=== PATIENT | female | born 1960 | race Caucasian/White ===

== ENCOUNTER 2022-01-01 19:16 | Emergency (ER) | payer MEDICARE, SELFPAY ==
[2022-01-01 19:21] VITALS: BP 138/57; PULSE 86; RESP 18; TEMP 36.6; O2SAT 94; BMI 40.3
[2022-01-01 19:27] VITALS: BP 138/57; PULSE 84; RESP 16; O2SAT 93
[2022-01-01 20:10] LABS: Glucose, Whole Blood 99 mg/dL (60-115)
[2022-01-01 20:10] LABS: Glucose, Whole Blood 116 mg/dL (60-115)
--- NOTE | 2022-01-01 22:00 | ECG_ITS ---
Test Reason : ALTERED MENTAL Blood Pressure : / mmHG Vent. Rate : 083 BPM Atrial Rate : 083 BPM P-R Int : 168 ms QRS Dur : 072 ms QT Int : 392 ms P-R-T Axes : 059 072 071 degrees QTc Int : 460 ms Normal sinus rhythm Normal ECG No previous ECGs available Referred By: Bernadette Rico Electronically Signed By:SWEETIE ESPAÑA
--- NOTE | 2022-01-01 22:02 | ED.GENADULT ---
HPI - General Adult General Chief complaint: General Medical Stated complaint: Hypoglycemic Time Seen by Provider: 01/01/22 20:18 Source: patient and EMS Mode of arrival: EMS Limitations: no limitations History of Present Illness HPI narrative: patient comes to the emergency room via ambulance due to hypoglycemia. Earlier this afternoon, patient was found by her nearly unresponsive, making noises and drooling. Patient's states that he try giving her orange juice but she drooled it out. EMS was called. On arrival of EMS, patient's blood glucose was in the low 40s, patient was given D50, patient's mental status improved nearly immediately. By the time patient arrived to the emergency room, she was alert and oriented x3, with a glucose of 116. Patient denies any recent URI or UTI symptoms. Patient was given food and drinks on arrival to the ED, patient states that she feels well. Patient states that she uses 80 units of Lantus at bedtime, and 60 units of Humalog 4 times a day Related Data Previous Rx's Medication Instructions Recorded glucagon 1 mg solution for 1 mg subcut Q20M PRN hypoglycemia 01/01/22 injection (Glucagon Emergency Kit) #1 ea Allergies Allergy/AdvReac Type Severity Reaction Status Date / Time No Known Allergies Allergy Verified 01/01/22 22:00 Review of Systems Review of Systems: Constitutional : No Weight loss, No Fever, No Chills, No Night Sweats, No Fatigue, No Malaise ENT/Mouth : No Hearing loss, No Ear Pain, No Nasal Congestion, No Sinus Pain, No Hoarseness, No sore throat, No Rhinorrhea, No Swallowing Difficulty Eyes: No Eye Pain, No Swelling, No Redness, No Foreign Body, No Discharge, No Vision Changes Cardiovascular : No Chest Pain, No SOB, No Dyspnea on Exertion, No Orthopnea, No Edema, No Palpitations Respiratory : No Cough, No Sputum, No Wheezing, No Smoke Exposure, No Dyspnea Gastrointestinal : No Nausea, No Vomiting, No Diarrhea, No Constipation, No abdominal Pain, No Hematochezia, No Melena Genitourinary : no irregular bleeding, No Dysuria, No Urinary Frequency, No Hematuria, No Urinary Incontinence, No Urgency, No Flank Pain, No Urinary Flow Changes, No Hesitancy Musculoskeletal : No joint pain, No Myalgias, No Joint Swelling Skin : No Skin Lesions, No rash Neuro : No Weakness, No Numbness, No Paresthesias, No Loss of Consciousness, No Dizziness, No Headache Psych : No Anxiety/Panic, No Depression, No SI/HI/AH/VH, No Social Issues, Heme/Lymph: No Bruising, No Bleeding,No Lymphadenopathy Endocrine : No Polyuria, No Polydipsia, No Temperature Intolerance, earlier today had an episode of hypoglycemia [facility] Past Medical History Medical History (Updated 01/01/22 @ 22:07 by Bernadette Rico MD) Asthma Type 2 diabetes mellitus Social History Social History Alcohol intake: never Patient Tobacco Use Status: Current everyday Tobacco user Use of substances other than those prescribed or required for medical reasons: No Advance Directives: No Advance Directives Information Provided: No Patient : No Physical Exam ED Vital Signs: Vital Signs - 24 hr 01/01/22 19:21 01/01/22 19:27 01/01/22 22:35 Temperature 97.8 F Pulse Rate 86 84 82 Respiratory Rate 18 16 16 Blood Pressure 138/57 L 138/57 L Pulse Oximetry 94 93 Oxygen Delivery Method Room Air Room Air BMI result Body Mass Index 40.3 Const Other: Appearance: Alert. Oriented X3. No acute distress. Eyes: Pupils equal, round and reactive to light. ENT: Pharynx normal. Neck: Normal inspection. Neck supple. No lymph nodes noted. No crepitus CVS: Normal heart rate and rhythm. Pulses normal. Normal S1 and S2 Respiratory: No respiratory distress. Breath sounds normal. No Wheezing. No rales Abdomen: Soft and nontender. No rigidity. No distention. Skin: Skin warm and dry. Normal skin color. Normal skin turgor. Extremities: No lower extremity edema. No Lacerations. No Rash Neuro: Oriented X 3. No motor deficit. No sensory deficit. Moving all extremities. No slurred speech. CN 2 through 12 grossly intact, has a constant tremor in both hands Psych: calm, cooperative, normal affect Course Course Course Narrative: patient's point of care is 99. Patient awake, alert and oriented x3. No significant acute lab abnormalities. Patient received 1 dose of albuterol. Patient was due for her neb treatment and was provided with 1 here. The Solu-Medrol given. Patient feels back at baseline. I discussed with the patient to decrease her insulin Humalog from 60 units 4 times a day to 55. Patient is to have close follow-up with the primary care physician. Patient provided with a prescription for emergency glucagon use, explained to the patient when to use it. Patient's states he knows how to use it Medical Decision Making Lab Data Result diagrams: 01/01/22 22:32 01/01/22 22:32 Labs: Lab Results 01/01/22 01/01/22 01/01/22 Range/Units 19:31 20:06 22:10 WBC (4.8-10.8) X10*3/uL RBC (4.20-5.50) X10*6/uL Hgb (12.0-16.0) g/dl Hct (37.0-47.0) % MCV (80.0-98.0) fL MCH (27.0-33.0) pg MCHC (31.0-35.0) g/dl RDW (11.0-16.0) % Plt Count (160-400) X10*3/uL MPV (9.4-12.3) fL Immature Gran % (Auto) (0.0-0.4) % Neut % (Auto) (45-73) % Lymph % (Auto) (20-40) % [place] % (Auto) (2-11) % Eos % (Auto) (0-4) % Baso % (Auto) (0-2) % Lymph # (Auto) (1.2-4.9) X10*3/uL [place] # (Auto) (0.1-1.2) X10*3/uL Eos # (Auto) (0.0-0.4) X10*3/uL Baso # (Auto) (0.0-0.2) X10*3/uL Abs Immat Gran (auto) (0.00-0.03) X10*3/uL Absolute Neuts (auto) (2.0-8.3) x10*3/uL Absolute Nucleated RBC (0.0-0.012) X10*3/uL Nucleated RBC % (auto) (0.0-0.2) /100WBC Sodium (135-145) mmol/L Potassium (3.3-5.1) mmol/L Chloride (96-108) mmol/L Carbon Dioxide (22-29) mmol/L Anion Gap (12-20) BUN (9-16) mg/dL Creatinine (0.5-1.4) mg/dL Estim Creat Clear Calc Estimated GFR POC Glucose 116 H 99 178 H (60-115) mg/dL Random Glucose (60-115) mg/dL Calcium (8.4-10.2) mg/dL Total Bilirubin (0.0-1.0) mg/dL Direct Bilirubin (0.0-0.5) mg/dL AST (5-31) U/L ALT (0-31) U/L Alkaline Phosphatase (39-117) U/L Total Protein (6.5-8.0) g/dL Albumin (3.5-5.0) g/dL 01/01/22 01/01/22 Range/Units 22:32 22:32 WBC 9.6 (4.8-10.8) X10*3/uL RBC 4.59 (4.20-5.50) X10*6/uL Hgb 14.2 (12.0-16.0) g/dl Hct 44.5 (37.0-47.0) % MCV 96.9 (80.0-98.0) fL MCH 30.9 (27.0-33.0) pg MCHC 31.9 (31.0-35.0) g/dl RDW 12.9 (11.0-16.0) % Plt Count 200 (160-400) X10*3/uL MPV 9.3 L (9.4-12.3) fL Immature Gran % (Auto) 0.5 H (0.0-0.4) % Neut % (Auto) 67.8 (45-73) % Lymph % (Auto) 22.9 (20-40) % [place] % (Auto) 6.9 (2-11) % Eos % (Auto) 1.3 (0-4) % Baso % (Auto) 0.6 (0-2) % Lymph # (Auto) 2.2 (1.2-4.9) X10*3/uL [place] # (Auto) 0.7 (0.1-1.2) X10*3/uL Eos # (Auto) 0.1 (0.0-0.4) X10*3/uL Baso # (Auto) 0.1 (0.0-0.2) X10*3/uL Abs Immat Gran (auto) 0.05 H (0.00-0.03) X10*3/uL Absolute Neuts (auto) 6.5 (2.0-8.3) x10*3/uL Absolute Nucleated RBC 0.000 (0.0-0.012) X10*3/uL Nucleated RBC % (auto) 0.0 (0.0-0.2) /100WBC Sodium 142 (135-145) mmol/L Potassium 4.8 (3.3-5.1) mmol/L Chloride 101 (96-108) mmol/L Carbon Dioxide 27 (22-29) mmol/L Anion Gap 19 (12-20) BUN 17 H (9-16) mg/dL Creatinine 0.88 (0.5-1.4) mg/dL Estim Creat Clear Calc 86.4 Estimated GFR > 60 POC Glucose (60-115) mg/dL Random Glucose 191 H (60-115) mg/dL Calcium 9.0 (8.4-10.2) mg/dL Total Bilirubin 0.4 (0.0-1.0) mg/dL Direct Bilirubin < 0.2 (0.0-0.5) mg/dL AST 25 (5-31) U/L ALT 36 H (0-31) U/L Alkaline Phosphatase 88 (39-117) U/L Total Protein 6.3 L (6.5-8.0) g/dL Albumin 3.8 (3.5-5.0) g/dL Critical Care Time Critical Care Time Critical Care Time: Yes Total Critical Care Time: 30 Attestation: I have personally provided critical care time. Time includes review of lab data, radiology results, discussion with consultants, and monitoring for potential decompensation. Intervention performed as documented. Discharge Plan Discharge Clinical Impression: Hypoglycemia Patient Disposition: Home, Self-Care Instructions: Hypoglycemia in a Person with Diabetes (ED) Additional Instructions: please decrease your Humalog insulin from 60 units 4 times a day to 55 units 4 times a day. Please follow-up with your primary care physician tomorrow. If you have any worsening or new symptoms, please return to the emergency room or call 911 Prescriptions: New Glucagon Emergency Kit (human) 1 mg recon soln 1 mg subcut Q20M PRN (Reason: hypoglycemia) Qty: 1 0RF Rx Instructions: until target blood sugar attained
[2022-01-01 22:13] LABS: Glucose, Whole Blood 178 mg/dL (60-115)
[2022-01-01 22:35] VITALS: PULSE 82; RESP 16; O2SAT 91
[2022-01-01] MEDS: Albuterol Sulfate (0.083%) 2.5 MG/3 ML VIAL.NEB 10 MG INHALE (22:35)
[2022-01-01 22:37] LABS: Basophils Absolute Auto 0.1 X10*3/uL (0.0-0.2); Basophils Percent Auto 0.6 % (0-2); Eosinophils Absolute Auto 0.1 X10*3/uL (0.0-0.4); Eosinophils Percent Auto 1.3 % (0-4); Hematocrit 44.5 % (37.0-47.0); Hemoglobin 14.2 g/dl (12.0-16.0); Imm Gran Abs Auto 0.05 X10*3/uL (0.00-0.03); Imm Gran Pct Auto 0.5 % (0.0-0.4); Lymphocytes Absolute Auto 2.2 X10*3/uL (1.2-4.9); Lymphocytes Percent Auto 22.9 % (20-40); MANUAL DIFF FLAG NO; Mean Corpuscular HGB Conc 31.9 g/dl (31.0-35.0); Mean Corpuscular Hemoglobin 30.9 pg (27.0-33.0); Mean Corpuscular Volume 96.9 fL (80.0-98.0); Mean Platelet Volume 9.3 fL (9.4-12.3); Monocytes Absolute Auto 0.7 X10*3/uL (0.1-1.2); Monocytes Percent Auto 6.9 % (2-11); Neutrophils Absolute Auto 6.5 x10*3/uL (2.0-8.3); Neutrophils Percent Auto 67.8 % (45-73); Platelet Count 200 X10*3/uL (160-400); Red Blood Count 4.59 X10*6/uL (4.20-5.50); Red Cell Distribution Width 12.9 % (11.0-16.0); White Blood Count 9.6 X10*3/uL (4.8-10.8)
[2022-01-01 22:51] LABS: Alanine Aminotransferase 36 U/L (0-31); Albumin Level 3.8 g/dL (3.5-5.0); Alkaline Phosphatase 88 U/L (39-117); Anion Gap 19 (12-20); Aspartate Amino Transferase 25 U/L (5-31); Bilirubin Direct < 0.2 mg/dL (0.0-0.5); Bilirubin Total 0.4 mg/dL (0.0-1.0); Blood Urea Nitrogen 17 mg/dL (9-16); Carbon Dioxide 27 mmol/L (22-29); Chloride 101 mmol/L (96-108); Creatinine Clr Calc Pharmacy 86.4; Estimated Glomerular Filt Rate > 60; Glucose Random 191 mg/dL (60-115); Potassium 4.8 mmol/L (3.3-5.1); Sodium 142 mmol/L (135-145); Total Protein 6.3 g/dL (6.5-8.0)
== END 2022-01-01 23:31 | disposition home or self-care (01) ==
PROVIDERS: Emergency Provider Emergency Medicine
DX: E11.649 Type 2 diabetes mellitus with hypoglycemia without coma (principal); R41.82 Altered mental status, unspecified; Z79.899 Other long term (current) drug therapy; Z79.4 Long term (current) use of insulin
CPT/HCPCS: 36415; 80048; 80076; 82947; 85025; 93005; 94640; 99284; 99285

== ENCOUNTER 2022-01-04 06:55 | Emergency (ER) | payer MEDICARE, SELFPAY ==
[2022-01-04 07:09] VITALS: BP 136/67; PULSE 86; RESP 16; TEMP 36.9; BMI 40.9
--- NOTE | 2022-01-04 07:27 | ED_ITS ---
HPI - General Adult General Chief complaint: Altered Mental Status Stated complaint: HYPOGYLCEMIA POC 48 Time Seen by Provider: 01/04/22 07:14 Source: patient Mode of arrival: EMS Limitations: other (poor historian) History of Present Illness HPI narrative: 61 yo female with hx of HTN, HLD, obesity, IDDM has been to the ED for low BS in AM - today is the 3rd vist in the last 7 days ([facility]). Family noted she could not be woken POC 20 given juice, EMS gave glucagon and patient now awake. She cannot reliably tell me her insulin regimen - she notes she didn't take her lantus last night but did take 30 units of insulin with BS at dinner time blood sugar 250. She then notes she ate dinner cannot tell me what and blood sugar was 190s right before bed MD complaint: low blood sugar Onset (ago): day(s) (several) Severity: severe Relieving factors: eating Exacerbating factors: other (patient is unsure) Associated symptoms: confusion Treatments prior to arrival: other (juice and glucagon) Related Data Previous Rx's Medication Instructions Recorded glucagon 1 mg solution for 1 mg subcut Q20M PRN hypoglycemia 01/01/22 injection (Glucagon Emergency Kit) #1 ea cefuroxime axetil 250 mg tablet 250 mg PO BID 7 days #14 tabs 01/04/22 Allergies Allergy/AdvReac Type Severity Reaction Status Date / Time No Known Allergies Allergy Verified 01/01/22 22:00 Review of Systems Review of Systems: Constitutional : No Fever, No Chills ENT/Mouth : No sore throat, No Rhinorrhea Eyes: No Eye Pain, No Swelling, No Redness Cardiovascular : No Chest Pain, No SOB Respiratory : No Cough, No Sputum, No Wheezing Gastrointestinal : No Nausea, No Vomiting, No Diarrhea, No abdominal Pain Genitourinary : No Dysuria, No Urinary Frequency, No Hematuria, Musculoskeletal : No joint pain, No Myalgias, No Joint Swelling Skin : No Skin Lesions, No rash Neuro : No Weakness, No Numbness, No Dizziness, No Headache Psych : No Anxiety/Panic, No Depression All other systems reviewed and are negative [facility] Past Medical History Attestation statement: The following information was validated with the patient. Medical History Asthma HTN (hypertension) Hyperlipidemia Obesity Type 2 diabetes mellitus Social History Social History Alcohol intake: never Patient Tobacco Use Status: Current everyday Tobacco user Advance Directives: No Advance Directives Information Provided: Yes Physical Exam ED Vital Signs: Vital Signs - 24 hr 01/04/22 07:09 01/04/22 09:52 Temperature 98.5 F Pulse Rate 86 88 Respiratory Rate 16 20 Blood Pressure 136/67 122/55 L Pulse Oximetry 93 Oxygen Delivery Method Room Air Room Air BMI result Body Mass Index 40.9 Appearance: Alert. Oriented X3. No acute distress. Had some trouble remembering events from yesterday Eyes: Pupils equal, round and reactive to light. ENT: Pharynx normal. Neck: Normal inspection. Neck supple. CVS: Normal heart rate and rhythm. Pulses normal. Respiratory: No respiratory distress. Breath sounds normal. Abdomen: Soft and nontender. Obese Skin: Skin warm and dry. Normal skin color. Normal skin turgor. Extremities: 1+ pitting lower extremity edema. No calf ttp Neuro: Oriented X 3. No motor deficit. No sensory deficit. Course Course Course Narrative: UA + for infection 859am - cultures, lactic acid and IV ceftriaxone ordered hypoglycemia going on before UTI doubt this is the cause and patient want to go home, do not want resources, patient upset she is still here, BS has been stable. THE REASON FOR HYPOGLYCEMIA IS THAT THE PATIENT RAN OUT OF HER INSULIN AND THEY DO NOT GET PAID UNTIL TODAY SO THEY COULD NOT FILL HER PRESCRIPTION. SHE WAS USING HER BROTHER IN LAWS INSULIN SHORT TERM HOPING IT WOUULD ACT LIKE LANTUS BECAUSE IT LOOKED THE SAME BUT IN FACT SHE IS NOT SURE WHAT KIND OF INSULIN IT WAS. THIS WAS THE CAUSE OF HER HYPOGLYCEMIA. HER AND AGREE NOT TO USE OTHER PEOPLE'S INSULIN. IT WAS LIKELY A INTERMEDIATE ACTING INSULIN. ALL OF HER EPISODES STARTED AROUND USING IT. Medical Decision Making MDM Narrative Medical decision making narrative: 61 yo female with hx of HTN, HLD, obesity, IDDM repeat visits to the ED for low blood sugar - denies infectious symptoms. She has a hard time describing her regimen to me. At this time will need basic labs UA observation and possible rehab/PT CM if no medical issue found. ? Error in insulin administration. Lab Data Result diagrams: 01/04/22 08:38 01/04/22 08:38 Labs: Lab Results 01/04/22 01/04/22 01/04/22 Range/Units 07:07 07:30 08:21 WBC (4.8-10.8) X10*3/uL RBC (4.20-5.50) X10*6/uL Hgb (12.0-16.0) g/dl Hct (37.0-47.0) % MCV (80.0-98.0) fL MCH (27.0-33.0) pg MCHC (31.0-35.0) g/dl RDW (11.0-16.0) % Plt Count (160-400) X10*3/uL MPV (9.4-12.3) fL Immature Gran % (Auto) (0.0-0.4) % Neut % (Auto) (45-73) % Lymph % (Auto) (20-40) % [place] % (Auto) (2-11) % Eos % (Auto) (0-4) % Baso % (Auto) (0-2) % Lymph # (Auto) (1.2-4.9) X10*3/uL [place] # (Auto) (0.1-1.2) X10*3/uL Eos # (Auto) (0.0-0.4) X10*3/uL Baso # (Auto) (0.0-0.2) X10*3/uL Abs Immat Gran (auto) (0.00-0.03) X10*3/uL Absolute Neuts (auto) (2.0-8.3) x10*3/uL Absolute Nucleated RBC (0.0-0.012) X10*3/uL Nucleated RBC % (auto) (0.0-0.2) /100WBC Sodium (135-145) mmol/L Potassium (3.3-5.1) mmol/L Chloride (96-108) mmol/L Carbon Dioxide (22-29) mmol/L Anion Gap (12-20) BUN (9-16) mg/dL Creatinine (0.5-1.4) mg/dL Estim Creat Clear Calc Estimated GFR POC Glucose 116 H (60-115) mg/dL Random Glucose (60-115) mg/dL Calcium (8.4-10.2) mg/dL Total Bilirubin (0.0-1.0) mg/dL Direct Bilirubin (0.0-0.5) mg/dL AST (5-31) U/L ALT (0-31) U/L Alkaline Phosphatase (39-117) U/L Total Protein (6.5-8.0) g/dL Albumin (3.5-5.0) g/dL Lipase (8-78) U/L Urine Color Yellow Urine Appearance Cloudy Urine pH 7.0 (5.0-9.0) Ur Specific [place] 1.010 (1.005-1.025) Urine Protein Negative (Neg-Trace) mg/dL Urine Glucose (UA) 250 H (Negative) mg/dL Urine Ketones Negative (Negative) mg/dL Urine Blood Negative (Negative) Urine Nitrite Positive H (Negative) Ur Leukocyte Esterase Moderate (2+) H (Negative) Urine RBC 3-5 H (0-2) /HPF Urine WBC 21-50 H (0-5) /HPF Ur Squamous Epith Cells 0-2 (0-2) /HPF Urine Bacteria 4+ (None Seen) Hyaline Casts 0-2 (0-2) /LPF COVID-19 (CARL) Negative (Negative) COVID-19 Clin Com See Note 01/04/22 01/04/22 Range/Units 08:38 08:38 WBC 14.6 H (4.8-10.8) X10*3/uL RBC 4.80 (4.20-5.50) X10*6/uL Hgb 14.8 (12.0-16.0) g/dl Hct 46.7 (37.0-47.0) % MCV 97.3 (80.0-98.0) fL MCH 30.8 (27.0-33.0) pg MCHC 31.7 (31.0-35.0) g/dl RDW 12.9 (11.0-16.0) % Plt Count 215 (160-400) X10*3/uL MPV 9.3 L (9.4-12.3) fL Immature Gran % (Auto) 0.5 H (0.0-0.4) % Neut % (Auto) 80.0 H (45-73) % Lymph % (Auto) 12.7 L (20-40) % [place] % (Auto) 6.0 (2-11) % Eos % (Auto) 0.3 (0-4) % Baso % (Auto) 0.5 (0-2) % Lymph # (Auto) 1.9 (1.2-4.9) X10*3/uL [place] # (Auto) 0.9 (0.1-1.2) X10*3/uL Eos # (Auto) 0.1 (0.0-0.4) X10*3/uL Baso # (Auto) 0.1 (0.0-0.2) X10*3/uL Abs Immat Gran (auto) 0.08 H (0.00-0.03) X10*3/uL Absolute Neuts (auto) 11.7 H (2.0-8.3) x10*3/uL Absolute Nucleated RBC 0.000 (0.0-0.012) X10*3/uL Nucleated RBC % (auto) 0.0 (0.0-0.2) /100WBC Sodium 140 (135-145) mmol/L Potassium 4.7 (3.3-5.1) mmol/L Chloride 103 (96-108) mmol/L Carbon Dioxide 24 (22-29) mmol/L Anion Gap 18 (12-20) BUN 15 (9-16) mg/dL Creatinine 0.78 (0.5-1.4) mg/dL Estim Creat Clear Calc 95.0 Estimated GFR > 60 POC Glucose (60-115) mg/dL Random Glucose 187 H (60-115) mg/dL Calcium 9.0 (8.4-10.2) mg/dL Total Bilirubin < 0.2 (0.0-1.0) mg/dL Direct Bilirubin < 0.2 (0.0-0.5) mg/dL AST 44 H D (5-31) U/L ALT 52 H (0-31) U/L Alkaline Phosphatase 94 (39-117) U/L Total Protein 7.0 (6.5-8.0) g/dL Albumin 4.1 (3.5-5.0) g/dL Lipase 5 L (8-78) U/L Urine Color Urine Appearance Urine pH (5.0-9.0) Ur Specific [place] (1.005-1.025) Urine Protein (Neg-Trace) mg/dL Urine Glucose (UA) (Negative) mg/dL Urine Ketones (Negative) mg/dL Urine Blood (Negative) Urine Nitrite (Negative) Ur Leukocyte Esterase (Negative) Urine RBC (0-2) /HPF Urine WBC (0-5) /HPF Ur Squamous Epith Cells (0-2) /HPF Urine Bacteria (None Seen) Hyaline Casts (0-2) /LPF COVID-19 (CARL) (Negative) COVID-19 Clin Com Discharge Plan Discharge Clinical Impression: Hypoglycemia, Acute UTI Leukocytosis Qualifiers: Leukocytosis type: unspecified Qualified Code(s): D72.829 - Elevated white blood cell count, unspecified Patient Disposition: Home, Self-Care Instructions: Urinary Tract Infection in Women (ED), Hypoglycemia in a Person w ith Diabetes (ED), Leukocytosis (ED) Additional Instructions: return to ED for any worsening symptoms or concerns YOU NEED TO CHECK YOUR BLOOD SUGAR 4 TIMES A DAY BEFORE MEALS AND BEFORE BED DO NOT USE OTHER INSULIN - ONLY WHAT IS PRESCRIBED. Prescriptions: New cefuroxime axetil 250 mg tablet 250 mg PO BID 7 Days Qty: 14 0RF No Action Glucagon Emergency Kit (human) 1 mg recon soln 1 mg subcut Q20M PRN (Reason: hypoglycemia) Qty: 1 0RF Rx Instructions: until target blood sugar attained Referrals: Physician,Unknown J [Primary Care Provider] - (primary care doctor this week to go over medications)
[2022-01-04 07:28] LABS: Glucose, Whole Blood 116 mg/dL (60-115)
--- NOTE | 2022-01-04 07:32 | PC.NURSE ---
give 16 oz oj during triage.
[2022-01-04 07:54] LABS: COVID-19 Test Negative (Negative); IDNOW Serial# 16C4AD1C
[2022-01-04 08:31] LABS: Appearance Urine Cloudy; Color Urine Yellow; Glucose Urine UA 250 mg/dL (Negative); Leukocyte Esterase Urine Moderate (2+) (Negative); Nitrite Urine Positive (Negative); UMIC TRIGGER UACC YES; Urine Blood Negative (Negative); Urine Ketones Negative (Negative); Urine Protein Negative (Neg-Trace)
[2022-01-04 08:33] LABS: Bacteria Urine 4+ (None Seen); Hyaline Casts Urine 0-2 /LPF (0-2); Squamous Epithelial Cell Urine 0-2 /HPF (0-2); UACC Culture Trigger YES; WBC Urine 21-50 /HPF (0-5)
[2022-01-04 08:42] LABS: MANUAL DIFF FLAG NO
[2022-01-04 08:43] LABS: Basophils Absolute Auto 0.1 X10*3/uL (0.0-0.2); Basophils Percent Auto 0.5 % (0-2); Eosinophils Absolute Auto 0.1 X10*3/uL (0.0-0.4); Eosinophils Percent Auto 0.3 % (0-4); Hematocrit 46.7 % (37.0-47.0); Hemoglobin 14.8 g/dl (12.0-16.0); Imm Gran Abs Auto 0.08 X10*3/uL (0.00-0.03); Imm Gran Pct Auto 0.5 % (0.0-0.4); Lymphocytes Absolute Auto 1.9 X10*3/uL (1.2-4.9); Lymphocytes Percent Auto 12.7 % (20-40); Mean Corpuscular HGB Conc 31.7 g/dl (31.0-35.0); Mean Corpuscular Hemoglobin 30.8 pg (27.0-33.0); Mean Corpuscular Volume 97.3 fL (80.0-98.0); Mean Platelet Volume 9.3 fL (9.4-12.3); Monocytes Absolute Auto 0.9 X10*3/uL (0.1-1.2); Neutrophils Absolute Auto 11.7 x10*3/uL (2.0-8.3); Platelet Count 215 X10*3/uL (160-400); Red Cell Distribution Width 12.9 % (11.0-16.0); White Blood Count 14.6 X10*3/uL (4.8-10.8)
[2022-01-04 09:10] LABS: Alanine Aminotransferase 52 U/L (0-31); Albumin Level 4.1 g/dL (3.5-5.0); Alkaline Phosphatase 94 U/L (39-117); Anion Gap 18 (12-20); Aspartate Amino Transferase 44 U/L (5-31); Bilirubin Direct < 0.2 mg/dL (0.0-0.5); Bilirubin Total < 0.2 mg/dL (0.0-1.0); Blood Urea Nitrogen 15 mg/dL (9-16); Carbon Dioxide 24 mmol/L (22-29); Chloride 103 mmol/L (96-108); Estimated Glomerular Filt Rate > 60; Glucose Random 187 mg/dL (60-115); Lipase 5 U/L (8-78); Potassium 4.7 mmol/L (3.3-5.1); Sodium 140 mmol/L (135-145)
[2022-01-04 09:52] VITALS: BP 122/55; PULSE 88; RESP 20; O2SAT 93
--- NOTE | 2022-01-04 10:28 | MHC.CM.ED ---
Received case management consult from Dr Mercedes. Patient came to ER due to hypoglycemia. Patient was also seen at [facility] on 01/01 for the same. Patient was also at [facility] on 01/02 for the same. Met with patient and , Zachary HOOVER in regards to discharge planning. Per patient, she ran out of her Lantus. She though the prescription she had at home was a long acting insulin. It was a fast acting insulin. Lantus prescription has been fixed and is available at the pharmacy for last picker today. Zachary HOOVER will get it from the pharmacy. Dr Mercedes aware. Dr Mercedes met with patient again. Patient ran out of her insulin. She was using her [id number]'s insulin. She isn't aware if it is short acting or long acting insulin. Patient will be able to last picker insulin today.
[2022-01-04 10:32] LABS: Lactic Acid 1.8 mmol/L (0.5-2.0)
--- NOTE | 2022-01-04 10:37 | PC.NURSE ---
Delay in ABX due to obtaining blood cx difficult stick. Per may give rocephin and hold second set of cx at this time.
[2022-01-04] MEDS: cefTRIAXone sodium 1 GM in 0.9 % Sodium Chloride 50 ML IV (10:45)
== END 2022-01-04 11:14 | disposition home or self-care (01) ==
PROVIDERS: Emergency Provider Emergency Medicine; PCP Internal Medicine
DX: E11.649 Type 2 diabetes mellitus with hypoglycemia without coma (principal); N39.0 Urinary tract infection, site not specified; B96.20 Unspecified Escherichia coli [E. coli] as the cause of diseases classified elsewhere; B95.4 Other streptococcus as the cause of diseases classified elsewhere; D72.829 Elevated white blood cell count, unspecified; Z20.822 Contact with and (suspected) exposure to COVID-19; I10 Essential (primary) hypertension; E78.5 Hyperlipidemia, unspecified; F17.200 Nicotine dependence, unspecified, uncomplicated; E66.9 Obesity, unspecified; Z68.41 Body mass index [BMI] 40.0-44.9, adult; Z91.14 Patient's other noncompliance with medication regimen
CPT/HCPCS: 36415; 80048; 80076; 81001; 82947; 83605; 83690; 85025; 87040; 87086; 87088; 87186; 87635; 96374; 99284; J0696

== ENCOUNTER 2023-06-14 10:25 | Outpatient (AMB) | payer MEDICARE, SELFPAY ==
--- NOTE | 2023-06-14 10:28 | AM.OFFWIN_ITS ---
Intake Vital Signs 06/14/23 10:33 Height 5 ft 6 in Weight 252 lb BMI 40.7 BP 110/60 Blood Pressure Location Lt brachial Position Sitting Pulse 97 Pulse Source Pulse Oximeter Temp 97.5 F Temp Source Temporal Artery Scan Pulse Oximetry (%) 96 Oxygen Delivery Method Room Air Intake Visit Reasons: EP cough Intake Note: pt is here today for cough started 3 weeks ago Patient Tobacco Use Status: Current everyday Tobacco user Allergies No Known Allergies Allergy (Verified 06/14/23 10:28) Do you need a note to return to daycare/school/sports/work: No HPI HPI Comments History of Present Illness Details Patient is a 62yo smoker who presents for covid test She said + chronic smokers cough Had cough illness x 3 weeks Seen at PCP at [place] 10 days ago and said low O2 so she was sen via ambulance to the ER She said while there she was told + covid infection and given paxlovid States she finished meds and is feeling better + lingering cough but said back to basel ine No SOB except with long distance walking which is normal for her Denies CP, fever, chills or abnormal fatigue Taking cough medicine which helps [facility] Medical History Asthma HTN (hypertension) Hyperlipidemia Obesity Type 2 diabetes mellitus Social History Alcohol intake: never Patient Tobacco Use Status: Current everyday Tobacco user Review of Systems Const Denies chills and Denies fever(s) ENT Denies otalgia, Reports nasal discharge and Denies sore throat Card Denies chest pain and Reports dyspnea (with long distance walking) Resp Reports cough and Reports dyspnea (with long distance walking) Physical Exam Vital Signs: Last Vital Signs Temp 97.5 F 06/14/23 10:33 Pulse 97 06/14/23 10:33 BP 110/60 06/14/23 10:33 Pulse Ox 96 06/14/23 10:33 Oxygen Delivery Method Room Air 06/14/23 10:33 BMI result Body Mass Index 40.7 General: Non-toxic, NAD. Speaking full sentences. Skin: Warm dry throughout Eye: EOMI HENT: Airway patent. Uvula midline. No pharyngeal erythema or edema. No RELATIONS MGR. Bilateral canals clear. TM non-erythematous, non-bulging. No TM perforation or hemotympanum noted. Respiratory: No tachypnea. No wheezes, rales or rhonchi Cardiac: RRR. No murmur MSK: Full ROM extremities. Neurology: A/O. No aphasia or facial droop. Gait without abnormality with walker aid Psych: Good mood and affect Assessment & Plan Assessment & Plan (1) COVID-19 virus infection: Code(s): U07.1 - COVID-19 Plan: Pt seen and evaluated She states she is feeling much better and only wanted to come today to see if she was still + covid COVID Binex Now test ordered and pt ambulated to the lab for testing. 11:28 COVID resulted as negative. I went to room to inform patient and she was no longer in there. I attempted to call both numbers on record without response. Will attempt again Orders: Orders BinaxNOW Covid-19 Ag Today U07.1 - COVID-19 Coding Level of Care Code Est Pt Level 3 (15255) Diagnoses COVID-19 virus infection U07.1
[2023-06-14 10:33] VITALS: BP 110/60; PULSE 97; TEMP 36.4; O2SAT 96; BMI 40.7
== END 2023-06-14 11:37 | disposition home or self-care (01) ==
PROVIDERS: PCP Internal Medicine; Visit Provider Physician Assistant
DX: U07.1 COVID-19 (principal)
CPT/HCPCS: 99213

== ENCOUNTER 2023-06-14 10:51 | Outpatient (REF) | payer MEDICARE, SELFPAY ==
[2023-06-14 11:14] LABS: Binax Internal Control QC Valid; Binax Now Covid-19 Ag Negative (Negative); Binax Performed by: PAULP
== END 2023-06-14 10:52 | disposition home or self-care (01) ==
LOC: HO.HMGCLDS 10:51
PROVIDERS: Visit Provider Physician Assistant
DX: U07.1 COVID-19 (principal)
CPT/HCPCS: 87811